=== PATIENT | female | born 1955 | race Caucasian/White ===

== ENCOUNTER → 2018-08-03 | Outpatient (CLI) | payer OTHER | END | disposition home or self-care (01) | LOC: CFH 07:25 | PROVIDERS: ATTEND Family Medicine | DX: K76.0 Fatty (change of) liver, not elsewhere classified (principal); Z90.49 Acquired absence of other specified parts of digestive tract | CPT/HCPCS: 76700 ==

== ENCOUNTER → 2018-08-12 | Outpatient (CLI) | payer OTHER | END | disposition home or self-care (01) | LOC: CVU 07:51 | PROVIDERS: ATTEND Internal Medicine Cardiovascular Disease | DX: I34.0 Nonrheumatic mitral (valve) insufficiency (principal); I11.9 Hypertensive heart disease without heart failure; I25.2 Old myocardial infarction; I25.10 Atherosclerotic heart disease of native coronary artery without angina pectoris; Z95.0 Presence of cardiac pacemaker; E11.9 Type 2 diabetes mellitus without complications; J44.9 Chronic obstructive pulmonary disease, unspecified; E78.5 Hyperlipidemia, unspecified | CPT/HCPCS: 93306 ==

== ENCOUNTER → 2018-09-21 | Outpatient (CLI) | payer OTHER | END | disposition home or self-care (01) | LOC: CFH 09:36 | PROVIDERS: ATTEND Nurse Practitioner | DX: Z12.2 Encounter for screening for malignant neoplasm of respiratory organs (principal); I25.10 Atherosclerotic heart disease of native coronary artery without angina pectoris; J98.59 Other diseases of mediastinum, not elsewhere classified; Z87.891 Personal history of nicotine dependence | CPT/HCPCS: G0297 ==

== ENCOUNTER 2021-05-08 13:45 | Observation (INO) | payer MEDICARE, MEDICAID ==
[~2021-05-08] VITALS: Ht 152.4 cm; Wt 95.5 kg
[2021-05-08] MEDS ORDERED: SODIUM CHLORIDE 0.9% 1,000ML IVBOLUS ONE (14:30)
[2021-05-08] MEDS ORDERED: SODIUM CHLORIDE FLUSH 10ML SYR IVF ONE (14:30)
[2021-05-08 14:33] LABS: BASOPHILS % (AUTO) 1 % (0-1); EOSINOPHILS % (AUTO) 1 % (1-7); LYMPHOCYTES % (AUTO) 16 % (22-44); MEAN CORPUSCULAR HEMOGLOBIN 28.3 pg (27.0-34.8); MEAN CORPUSCULAR HGB CONC 32.2 g/dL (32.4-35.8); MEAN PLATELET VOLUME 8.7 fL (7.4-10.4); MONOCYTES % (AUTO) 7 % (2-9); NEUTROPHILS % (AUTO) 75 % (42-75); PLATELET COUNT 225 x10^3/uL (130-400); RED BLOOD COUNT 3.89 x10^6/uL (3.82-5.3)
[2021-05-08 14:43] LABS: ALANINE AMINOTRANSFERASE 27 U/L (12-78); ALBUMIN 3.4 g/dL (3.4-5.0); ANION GAP 8 mmol/L (5-15); CALCIUM 9.1 mg/dL (8.5-10.1); CHLORIDE 95 mmol/L (98-107); CREATININE 1.62 mg/dL (0.55-1.02)
[2021-05-08 14:47] LABS: ALKALINE PHOSPHATASE 70 U/L (45-117); BILIRUBIN,TOTAL 0.4 mg/dL (0.2-1.0); TROPONIN I < 0.015 ng/mL (0.000-0.045)
--- NOTE | 2021-05-08 15:15 | NUR ---
BEDSIDE REPORT AND TRANSFER OF CARE FROM MARISELA TATUM AT THIS TIME. PT DENIES ANY CP, PAIN, SOB AT THIS TIME OR NEED TO USE RESTROOM. RESTING IN POSITION OF COMFORT. WATCHING TV. VSS. SR ON MONITOR. CALL LIGHT IN REACH. FALL PRECAUTIONS IN PLACE. PT REQUESTING WATER/FOOD, TO DISCUSS REQUEST WITH ERP. PT UP FOR RECHECK.
--- NOTE | 2021-05-08 15:21 | NUR ---
DR. ORTIZ AT BEDSIDE FOR RECHECK
--- NOTE | 2021-05-08 16:10 | NUR ---
PT PROVIDED WATER PER DR. ORTIZ OKAY, TOLERATING PO FLUIDS WELL. MEAL TRAY ORDERED PER DR. ORTIZ AND PT REQUEST. VSS. SR ON MONITOR. DENIES ANY CP, SOB, DIZZINESS OR NEED TO USE RESTROOM. CALL LIGHT IN REACH. FALL PRECAUTIONS IN PLACE. AWAITING RECORDS FROM [facility]
--- NOTE | 2021-05-08 17:15 | NUR ---
REPORT TO BREAK RN ARSLAN. PT RESTING COMFORTABLY. VSS. DENIES NEED TO USE RESTROOM. CALL LIGHT IN REACH. FALL PRECAUTIONS IN PLACE.
[2021-05-08 18:17] LABS: TROPONIN I < 0.015 ng/mL (0.000-0.045)
--- NOTE | 2021-05-08 18:30 | NUR ---
RESTING COMFORTABLY. DENIES NEED TO USE RESTROOM. WARM BLANKET PROVIDED FOR COMFORT. VSS. DENIES ANY PAIN, CP. AWAITING ROOM ASSIGNMENT ON FLOOR. CALL LIGHT IN REACH. FALL PRECAUTIONS IN PLACE.
--- NOTE | 2021-05-08 19:15 | NUR ---
BEDSIDE REPORT AND TRANSFER OF CARE TO DESTINY RN AT THIS TIME.
--- NOTE | 2021-05-08 19:21 | NUR ---
REPORT FROM SHAYNA TATUM
[2021-05-08] MEDS ORDERED: morphine SULFATE 10 MG/ML, 1ML IVPush PRN (20:00)
[2021-05-08] MEDS ORDERED: ONDANSETRON 2MG/ML, 2ML IVPush PRN (20:00)
[2021-05-08] MEDS ORDERED: NITROGLYCERIN 0.4 MG BOTTLE (25 TABS) SL PRN (20:00)
[2021-05-08] MEDS ORDERED: HYDROmorphone 2 MG/ML, 1ML IVPush PRN (20:00)
[2021-05-08] MEDS ORDERED: ACETAMINOPHEN 325 MG TABLET PO PRN (20:00)
[2021-05-08] MEDS ORDERED: BISACODYL 10 MG SUPP PR PRN (20:00)
[2021-05-08] MEDS ORDERED: POLYETHYLENE GLYCOL 17 GM PACKET PO PRN (20:00)
[2021-05-08] MEDS ORDERED: PLEASE ENTER HEIGHT AND WEIGHT MC SCH (20:00)
--- NOTE | 2021-05-08 20:10 | NUR ---
REPORT TO OLYA TATUM
[2021-05-08] MEDS ORDERED: HEPARIN 5,000 UNITS/ML, 1ML SQ SCH (22:00)
[2021-05-08 22:35] VITALS: BP 115/71
[2021-05-08] MEDS: SODIUM CHLORIDE FLUSH 10ML SYR IVF SCH (22:58)
[2021-05-09 00:45] LABS: TROPONIN I < 0.015 ng/mL (0.000-0.045)
[2021-05-09] MEDS ORDERED: ALBUTEROL-IPRATROPIUM MDI INH INH PRN ×2 (01:00→17:30)
[2021-05-09] MEDS ORDERED: SEMA1PEN3 INJ (01:11)
[2021-05-09] MEDS ORDERED: ATOR80TA PO (01:11)
[2021-05-09] MEDS ORDERED: CHOL10003 PO (01:11)
[2021-05-09] MEDS ORDERED: TORS20TA2 PO (01:11)
[2021-05-09] MEDS ORDERED: INSU100I32 INJ (01:11)
[2021-05-09] MEDS ORDERED: CLOP75TA52 PO (01:11)
[2021-05-09] MEDS ORDERED: FLUT10.6 INH (01:11)
[2021-05-09] MEDS ORDERED: LOSA50TA14 PO (01:11)
[2021-05-09] MEDS ORDERED: POTA20TA89 PO (01:11)
[2021-05-09] MEDS ORDERED: FLUT1BLS3 IH (01:11)
[2021-05-09] MEDS ORDERED: COLC0.6C3 PO (01:11)
[2021-05-09] MEDS ORDERED: APIX5TAB4 PO (01:11)
[2021-05-09] MEDS ORDERED: ROPI2TAB8 PO (01:11)
[2021-05-09] MEDS ORDERED: METO-282 PO (01:11)
[2021-05-09] MEDS ORDERED: OMEP20CA20 PO (01:11)
[2021-05-09] MEDS: ROPINIROLE 1MG TABLET PO SCH ×2 (01:26→19:58)
[2021-05-09 01:27] VITALS: BP 113/58
[2021-05-09] MEDS ORDERED: ASPIRIN 81 MG TABLET EC PO SCH (06:00)
[2021-05-09 06:29] LABS: CHOL/HDL RATIO 3.1; LDL/HDL RATIO 1.3 (0.5-3.0)
[2021-05-09 06:56] VITALS: BP 117/76
[2021-05-09] MEDS ORDERED: REGADENOSON 0.4 MG/5 ML SYRINGE ONE (08:41)
[2021-05-09] MEDS: SODIUM CHLORIDE FLUSH 10ML SYR IVF SCH ×2 (09:00→19:58)
[2021-05-09] MEDS ORDERED: OMEPRAZOLE 20 MG CAPSULE.DR PO SCH (10:00)
[2021-05-09] MEDS: COLCHICINE 0.6 MG CAPSULE PO SCH (10:31)
[2021-05-09] MEDS: TORSEMIDE 20 MG TABLET PO SCH ×2 (10:31→19:58)
[2021-05-09] MEDS: LOSARTAN 50MG TABLET PO SCH (10:31)
[2021-05-09] MEDS: APIXABAN 5 MG TABLET PO SCH ×2 (10:31→19:58)
[2021-05-09] MEDS: CLOPIDOGREL 75 MG TABLET PO SCH (10:31)
[2021-05-09] MEDS: METOPROLOL SUCCINATE 25 MG TAB.ER.24H PO SCH (10:32)
[2021-05-09] MEDS: SENNA/DOCUSATE TABLET PO SCH (10:32)
[2021-05-09] MEDS ORDERED: GABA300S PO (10:37)
[2021-05-09 14:10] VITALS: BP 111/71
[2021-05-09] MEDS ORDERED: ALBU0.63 NEB (17:24)
[2021-05-09] MEDS ORDERED: FLUT1BLS15 IH (17:24)
[2021-05-09] MEDS ORDERED: MAALOX/HYOSCYAMINE/LIDOCAINE 45 ML BTL PO ONE (17:30)
[2021-05-09 19:55] VITALS: BP 128/74
[2021-05-09] MEDS: GABAPENTIN 400 MG CAPSULE PO SCH (19:58)
[2021-05-09] MEDS ORDERED: ATORVASTATIN 80 MG TABLET PO SCH (21:00)
[2021-05-09] MEDS ORDERED: INSULIN DEGLUDEC 66 UNIT SQ SCH (21:00)
[2021-05-09] MEDS: INSULIN LISPRO 100 UNITS/ML, PEN SQ-INSULIN SCH (22:04)
[2021-05-10 03:17] VITALS: BP 106/70
[2021-05-10] MEDS ORDERED: PANTOPRAZOLE 40MG TABLET PO SCH (06:00)
[2021-05-10 06:59] VITALS: BP 119/73
[2021-05-10] MEDS ORDERED: MAALOX/HYOSCYAMINE/LIDOCAINE 45 ML BTL PO ONE (07:30)
[2021-05-10] MEDS ORDERED: FLUTICASONE FUROATE 100MCG/INH INH SCH (09:00)
[2021-05-10] MEDS: INSULIN LISPRO 100 UNITS/ML, PEN SQ-INSULIN SCH ×2 (09:24→12:38)
[2021-05-10 10:00] VITALS: BP 132/94
[2021-05-10] MEDS: APIXABAN 5 MG TABLET PO SCH (10:04)
[2021-05-10] MEDS: METOPROLOL SUCCINATE 25 MG TAB.ER.24H PO SCH (10:05)
[2021-05-10] MEDS: LOSARTAN 50MG TABLET PO SCH (10:05)
[2021-05-10] MEDS: GABAPENTIN 400 MG CAPSULE PO SCH (10:05)
[2021-05-10] MEDS: COLCHICINE 0.6 MG CAPSULE PO SCH (10:07)
[2021-05-10] MEDS: ROPINIROLE 1MG TABLET PO SCH (10:07)
[2021-05-10] MEDS: CLOPIDOGREL 75 MG TABLET PO SCH (10:07)
[2021-05-10] MEDS: TORSEMIDE 20 MG TABLET PO SCH (10:08)
[2021-05-10] MEDS: SODIUM CHLORIDE FLUSH 10ML SYR IVF SCH (10:08)
[2021-05-10] MEDS: SENNA/DOCUSATE TABLET PO SCH (10:08)
[2021-05-10 13:36] VITALS: BP 141/75
[2021-05-10] MEDS ORDERED: PANT40TA6 PO (14:44)
== END 2021-05-10 15:37 | disposition home or self-care (01) ==
LOC: ED 13:55 → EDIP 19:46 → 5SO 21:00
PROVIDERS: ADMIT Family Medicine; ATTEND Family Medicine
DX: R07.89 Other chest pain (principal); R10.13 Epigastric pain; R13.10 Dysphagia, unspecified; I13.0 Hypertensive heart and chronic kidney disease with heart failure and stage 1 through stage 4 chronic kidney disease, or unspecified chronic kidney disease; E11.22 Type 2 diabetes mellitus with diabetic chronic kidney disease; I50.9 Heart failure, unspecified; N18.4 Chronic kidney disease, stage 4 (severe); J96.10 Chronic respiratory failure, unspecified whether with hypoxia or hypercapnia; K44.9 Diaphragmatic hernia without obstruction or gangrene; K22.8 Other specified diseases of esophagus; E78.5 Hyperlipidemia, unspecified; J44.9 Chronic obstructive pulmonary disease, unspecified; E66.01 Morbid (severe) obesity due to excess calories; I25.110 Atherosclerotic heart disease of native coronary artery with unstable angina pectoris; E78.00 Pure hypercholesterolemia, unspecified; I42.9 Cardiomyopathy, unspecified; I25.2 Old myocardial infarction; Z79.4 Long term (current) use of insulin; Z87.891 Personal history of nicotine dependence; Z90.711 Acquired absence of uterus with remaining cervical stump; Z95.810 Presence of automatic (implantable) cardiac defibrillator; Z79.899 Other long term (current) drug therapy
CPT/HCPCS: 36415; 71045; 74220; 78452; 80053; 80061; 82962; 83036; 84484; 85025; 93005; 93017; 93306; 96360; 96361; 96372; 99285; A9502; G0378; J1644; J1815; J2785; J7030; J2405